=== PATIENT | female | born 1965 | race Caucasian/White ===

== ENCOUNTER 2022-09-20 05:15 | Emergency (ER) | payer BC ==
[~2022-09-20] VITALS: Ht 167.6 cm; Wt 77.1 kg
[2022-09-20 06:04] LABS: ALKALINE PHOSPHATASE 76 U/L (46-116); BUN 12 mg/dl (9-23); CHLORIDE 106 mmol/L (98-107); LIPASE 35 U/L (12-53); POTASSIUM 3.2 mmol/L (3.4-5.1); SGPT/ALT 51 U/L (10-49); TOTAL PROTEIN 7.3 gm/dL (6.0-8.0)
[2022-09-20 06:10] LABS: BASO % 0.4 % (0.0-1.0); EOS # 0.2 10*3/uL (0.0-0.4); EOS % 1.9 % (1.0-4.0); HEMATOCRIT 39.1 % (37.0-47.0); LYMPH # 1.6 10*3/uL (1.3-4.4); LYMPH % 16.1 % (27.0-41.0); MEAN CELL VOLUME 89.3 fl (81.0-99.0); MEAN CORPUSCULAR HGB 30.4 pg (27.0-31.0); MEAN PLATELET VOLUME 10.3 fl (9.6-12.3); MONO # 0.7 10*3/uL (0.1-1.0); NEUT # 7.3 10*3/uL (2.3-7.9); NEUT % 72.8 % (47.0-73.0); PLATELET COUNT AUTOMATED 250 10*3/uL (130-400); RED BLOOD COUNT 4.38 10*6/uL (4.10-5.10)
[2022-09-20 06:20] LABS: ACT PARTIAL THROMBO TIME 25.4 SECONDS (20.0-32.1)
[2022-09-20 07:58] LABS: BILIRUBIN Negative (Negative); BLOOD Negative (Negative); CLARITY Clear (Clear); COLOR Yellow (Yellow); GLUCOSE Negative (Negative); KETONE 1+ (Negative); LEUKO ESTERASE Negative (Negative); NITRITE Negative (Negative); SPECIFIC GRAVITY >= 1.030 (1.001-1.030); UROBILINOGEN 0.2 E.U./dl (0.0-1.0)
[2022-09-20 08:21] LABS: BACTERIA 1+; CALCIUM OXALATE CRYSTALS Trace; WBC 0-2 wbc/hpf (0-5)
[2022-09-20] MEDS ORDERED: Motrin,Rufen800 MG PO (09:31)
[2022-09-20] MEDS ORDERED: PERCOCET 5-3251 EACH PO (09:31)
[2022-09-20] MEDS ORDERED: ONDANSETRON4 MG SL (09:31)
[2022-09-20] MEDS ORDERED: FLOMAX0.4 MG PO (09:31)
== END 2022-09-20 09:48 | disposition home or self-care (01) ==
LOC: ED 05:15
PROVIDERS: Internal Medicine
DX: N20.1 Calculus of ureter (principal); Z88.2 Allergy status to sulfonamides